=== PATIENT | female | born 1960 | race Caucasian/White ===

== ENCOUNTER 2021-03-29 10:08 | Emergency (ER) | payer BC ==
[~2021-03-29] VITALS: Ht 180.3 cm; Wt 86.4 kg
[2021-03-29 10:33] VITALS: BP 138/70; TEMP 97.3
[2021-03-29] MEDS ORDERED: ASPIRIN 81M81 MG/TA2 PO (11:49)
[2021-03-29] MEDS ORDERED: LEVOXYL0.088 MG PO (11:49)
[2021-03-29] MEDS ORDERED: ZOCOR 20MG20 MG PO (11:49)
[2021-03-29] MEDS ORDERED: CEPHALEXIN500 M1 PO (12:10)
[2021-03-29 12:30] VITALS: PULSE 75
== END 2021-03-29 12:30 | disposition home or self-care (01) ==
LOC: COL.ER 10:08
DX: S62.664A Nondisplaced fracture of distal phalanx of right ring finger, initial encounter for closed fracture (principal); E03.9 Hypothyroidism, unspecified; Z23 Encounter for immunization; Z79.890 Hormone replacement therapy; W20.8XXA Other cause of strike by thrown, projected or falling object, initial encounter